=== PATIENT | male | born 1945 | race Caucasian/White ===

== ENCOUNTER → 2017-02-21 | Outpatient (CLI) | payer MEDICARE, BC ==
[~2017-02-21] MED LIST: ANDROGEL1.62% TP; ASPIRIN 81MG TA81 MG PO; BISOPROLOL 5MG T5 MG PO; DILANTIN 100MG100 MG PO; DILTIAZEM 24HR120 MG PO; DIOVAN320 MG PO; FLOVENT HF0.044 MG/A IH; NEXIUM40 MG PO; PROVENTIL0.09 MG/A1 IH; SIMVASTATIN20 MG PO; SINGULAIR 10 MG10 MG PO
[2017-02-21 11:02] LABS: HEMOGLOBIN 11.3 g/dL (14.1-18.0); LYMPH # 1.1 K/mm3 (0.7-4.5); LYMPH % 24.8 % (10-50)
[2017-02-21 12:00] LABS: BUN 36 mg/dL (7-18)
[2017-02-21 12:01] LABS: GFR (ESTIMATED) 43 ML/MIN (>60)
== END ==
LOC: LAB 10:25
DX: N18.3 Chronic kidney disease, stage 3 (moderate) (principal)

== ENCOUNTER → 2017-05-10 | Outpatient (CLI) | payer MEDICARE, BC ==
--- NOTE | 2017-05-11 15:42 | RADIOLOGY REPORT PS360 ---
PROCEDURE: 2-D M-mode and color Doppler study INDICATIONS FOR THE TEST: Chest pain COPD Heart Murmur+ Tobacco Smoking Palpitations Fatigue Syncope Edema+ Hypertension+Diabetes Mellitus Rheumatic Fever SOB STEWART+Obesity Hyperlipidemia+ Family History HD Additional History CAD, CKD 3 PATIENT INFORMATION HEIGHT: 68 WEIGHT: 212 GENDER: Male B/P: 156/90 2-D/M-MODE INTERPRETATION: 2-D MEASUREMENTS OBSERVED VALUES IN CMS Right Ventricular Dimension (RVDd) 3.0 Interventricular Septum (Thickness)(IVsd) 1.3 Left Ventricular Internal Dimensions(LVIDd) 4.7 Left Ventricular Posterior Wall (Thickness)(LVPWd) 1.2 Aortic Root 2.0 Aortic Cusp Separation 2.4 Left Atrial Dimensions (LAD) 4.6 2D 1. Left atrium is moderately enlarged, left ventricle is normal size, there is mild concentric left ventricular hypertrophy, visually estimated ejection fraction 55% with no obvious regional wall motion abnormality. 2. The right atrium and right ventricle are mildly enlarged with normal contractility. 3. The aortic valve is thickened and calcified with mild restriction the leaflet mobility. 4. The mitral and tricuspid valve leaflets are minimally thickened and calcified. 5. The pulmonic valve is poorly visualized. 6. No significant pericardial effusion noted DOPPLER INTERROGATION: 1. The maximum aortic out flow velocity recorded study is 2.6 m/s, resulting in a mean gradient across valve of 15 mmHg, valve area 1.48 sq cm represents mild aortic stenosis, there is mild aortic insufficiency present. 2. The mitral inflow velocity within normal range, there is no mitral stenosis, there is mild mitral regurgitation, grade 1 diastolic dysfunction seen, tissue Doppler evidence of raised left atrial pressure. 3. There is moderate tricuspid regurgitation noted, calculated right ventricular systolic pressure 50 mmHg consistent with moderate pulmonary hypertension. CONCLUSION: 1. Biatrial enlargement, normal left ventricular size, mild concentric left ventricular hypertrophy, visually estimated ejection fraction 55% with no obvious regional wall motion abnormality, grade 1 diastolic dysfunction seen with tissue Doppler evidence of raised left atrial pressure. 2. Thickened and calcified aortic valve, mean gradient across valve of 15 mmHg, valve area 1.48 sq cm represents mild aortic stenosis, there is mild aortic insufficiency present. 3. Mild mitral and moderate tricuspid, calculated right ventricular systolic pressure 50 mmHg consistent with moderate pulmonary hypertension. 4. No significant pericardial effusion noted.
== END ==
LOC: RT 07:29
DX: R01.1 Cardiac murmur, unspecified (principal); N18.3 Chronic kidney disease, stage 3 (moderate); E78.5 Hyperlipidemia, unspecified; I10 Essential (primary) hypertension; I25.10 Atherosclerotic heart disease of native coronary artery without angina pectoris

== ENCOUNTER → 2017-07-28 | Outpatient (CLI) | payer MEDICARE ==
[~2017-07-28] MED LIST changes: +DOXAZOSIN MESYLA1 MG
[2017-07-28 10:09] LABS: HEMOGLOBIN 10.5 g/dL (14.1-18.0); LYMPH % 23.1 % (10-50)
[2017-07-28 11:23] LABS: URINE BILIRUBIN - DIPSTICK NEGATIVE (NEG); URINE BLOOD NEGATIVE (NEG)
[2017-07-28 17:56] LABS: BUN 26 mg/dL (7-18); GFR (ESTIMATED) 46 ML/MIN (>60)
== END ==
LOC: LAB 09:23
PROVIDERS: Hospitalist
DX: N18.3 Chronic kidney disease, stage 3 (moderate) (principal); R82.90 Unspecified abnormal findings in urine